=== PATIENT | female | born 1995 | race Two or more races ===

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

== ENCOUNTER 2017-04-10 12:44 | Emergency (ER) | payer BC ==
[~2017-04-10] VITALS: Ht 160 cm; Wt 115.0 kg
[~2017-04-10 12:44] MED LIST: AMOX1TAB10 PO; GUAI-637 PO
[2017-04-10 12:50] VITALS: Ht 160 cm; Wt 115.0 kg
--- NOTE | 2017-04-10 13:36 | RADRPT ---
PROCEDURE: XR Chest. CLINICAL INDICATION: chest pain TECHNIQUE: Single frontal view of the chest was obtained COMPARISON: None FINDINGS: The heart and mediastinum are within normal limits. There is a right lower lobe infiltrate. There is no pleural effusion or pneumothorax. RPTAT: AA IMPRESSION: Mild right lower lobe infiltrate. .Kendall Brown MD, MD Date Time Electronically viewed and signed by .Kendall Brown MD, on 04/10/2017 13:35 .S/
[2017-04-10] MEDS ORDERED: LEVOFLOXACIN 750 MG TABLET PO STA (13:51)
[2017-04-10 14:05] LABS: ADD UMIC YES; UR ASCORBIC ACID NEGATIVE (NEGATIVE); UR BACTERIA FEW /HPF (NONE SEEN); UR BILIRUBIN (Dip) 1+ mg/dL (NEGATIVE); UR BLOOD (Dip) NEGATIVE (NEGATIVE); UR CLARITY CLOUDY (CLEAR); UR COLOR AMBER (YELLOW); UR GLUCOSE (Dip) NEGATIVE (NEGATIVE); UR KETONES (Dip) TRACE mg/dL (NEGATIVE); UR LEUKOCYTE ESTERASE (Dip) 2+ Leu/ul (NEGATIVE); UR MUCUS MANY /HPF (NONE SEEN); UR NITRITE (Dip) NEGATIVE (NEGATIVE); UR RBC 6 /HPF (0-5); UR SPECIFIC GRAVITY (Dip) 1.032 (1.003-1.030); UR SQUAMOUS EPITHELIAL CELL MANY /HPF (FEW); UR TOTAL PROTEIN (Dip) 2+ mg/dl (NEGATIVE); UR UROBILINOGEN (Dip) NEGATIVE (NEGATIVE)
[2017-04-10 14:06] LABS: BASOPHILS % 0.2 % (0.0-2.0); EOSINOPHILS # 0.1 10^3/ul (0.0-0.5); EOSINOPHILS % 1.3 % (0.0-7.0); HEMATOCRIT 43.6 % (37.0-47.0); HEMOGLOBIN 14.6 g/dl (12.0-16.0); LYMPHOCYTES # 3.2 10^3/ul (0.8-2.9); LYMPHOCYTES % 31.1 % (18.0-55.0); MEAN CORPUSCULAR HGB CONC 33.5 g/dl (32.0-37.0); MEAN CORPUSCULAR VOLUME 86.5 fl (72.0-104.0); MEAN PLATELET VOLUME 10.3 fl (7.4-10.4); MONOCYTE # 0.5 10^3/ul (0.3-0.9); MONOCYTES % 5.2 % (0.0-13.0); NEUTROPHIL # 6.4 10^3/ul (1.6-7.5); NEUTROPHILS % 61.3 % (30.0-74.0); PLATELET COUNT 357 10^3/UL (140-415); RED BLOOD COUNT 5.04 10^6/ul (4.20-5.40); RED CELL DISTRIBUTION WIDTH 12.9 % (11.5-14.5); WHITE BLOOD COUNT 10.4 10^3/ul (4.8-10.8)
[2017-04-10] MEDS ORDERED: PHEN-538 PO (14:12)
[2017-04-10] MEDS ORDERED: LEVO750T25 PO (14:12)
[2017-04-10 14:18] VITALS: BP 174/95; PULSE 75; RESP 18; TEMP 98.9
[2017-04-10 14:38] LABS: ALANINE AMINOTRANSFERASE 149 IU/L (13-69); ALBUMIN 4.9 g/dl (3.3-4.9); ALBUMIN/GLOBULIN RATIO 1.44; ALKALINE PHOSPHATASE 79 IU/L (42-121); ANION GAP 23 (8-16); ASPARTATE AMINO TRANSFERASE 79 IU/L (15-46); BILIRUBIN,INDIRECT 0.4 mg/dl (0-1.1); BILIRUBIN,TOTAL 0.4 mg/dl (0.2-1.3); BLOOD UREA NITROGEN 8 mg/dl (7-20); CALCIUM 9.9 mg/dl (8.4-10.2); CARBON DIOXIDE 28 mmol/L (21-31); CHLORIDE 98 mmol/L (97-110); CREATININE 0.65 mg/dl (0.44-1.00); GLUCOSE 104 mg/dl (70-220); POTASSIUM 4.1 mmol/L (3.5-5.1); SODIUM 145 mmol/L (135-144); TOTAL PROTEIN 8.3 g/dl (6.1-8.1)
[2017-04-10 15:04] LABS: TROPONIN-I < 0.012 ng/ml (0.00-0.12)
--- NOTE | 2017-04-10 15:15 | ERD ---
ER Documentation Chief Complaint Date/Time DATE: 04/10/17 TIME: 15:02 Chief Complaint abdominal pain, chest pain, back pain and arm pain x 4 days HPI This is a 22-year-old female with a history of diabetes type 2, hypertension presenting to the emergency department complaining of chest pain, back pain, abdominal pain for the past 4 days. Patient states that her abdominal pain is constant rating it 5 out of 10. She admits to having a few episodes of nonbilious, nonbloody vomiting with diarrhea yesterday. Patient states that her chest pain is 6 out of 10 located in the left side of her chest, non- radiating and describes as sharp. She denies any shortness of breath. She denies any drug or alcohol use. Patient has not taken any medications for this. Denies any fevers. Denies dysuria ROS All systems reviewed and are negative except as per history of present illness. Medications Home Meds Active Scripts Phenazopyridine Hcl* (Pyridium*) 200 Mg Tab, 200 MG PO TID Y for URINARY PAIN, # 10 TAB Prov:ROBBI YANEZ PA-C 04/10/17 Levofloxacin* (Levaquin*) 750 Mg Tablet, 750 MG PO DAILY for 4 Days, TAB Prov:ROBBI YANEZ PA-C 04/10/17 Guaifenesin* (Robitussin*) 100 Mg/5 Ml Syrup, 100 MG PO Q4H Y for COUGH for 7 Days, ML Prov:PASILABANLEOAR F 10/11/16 Amoxicillin/Potassium Clav (Amox-Clav 875-125 mg Tablet) 875-125 mg Tab, 1 TAB PO BID for 7 Days, #14 TAB Prov:NATEILAJORGELEOAR F 10/11/16 Allergies Allergies: Coded Allergies: No Known Allergy (Verified , 09/15/14) PMhx/Soc History of Surgery: No Anesthesia Reaction: No Hx Neurological Disorder: No Hx Respiratory Disorders: No Hx Cardiac Disorders: Yes (HTN, HYPERLIPIDEMIA ) Hx Psychiatric Problems: No Hx Miscellaneous Medical Probl: Yes (DM) Hx Alcohol Use: No Hx Substance Use: No Hx Tobacco Use: No Smoking Status: Never smoker Physical Exam Vitals Vital Signs Date Time Temp Pulse Resp B/P Pulse Ox O2 Delivery O2 Flow Rate FiO2 04/10/17 14:18 98.9 75 18 174/95 98 Room Air 04/10/17 12:50 99.4 96 18 164/94 98 Physical Exam GENERAL: well-developed/well-nourished, in no apparent distress, non-toxic appearing HENT: NC/AT, moist mucous membranes EYES: Conjunctiva normal NECK: Supple, no lymphadenopathy PULM: No rales, rhonchi heard CV: Normal S1S2, RRR, good capillary refill GI: Soft, non-distended, tender to palpation in the suprapubic region Normal bowel sounds, no masses or organomegaly felt on exam No gross peritonitis, no bruits Negative Rovsing, negative Gaspar, negative McBurney's point, Negative CVAT BACK: No masses EXT: No clubbing, cyanosis, or edema NEURO: Alert and Orientated SKIN: Intact, normal turgor PSYCH: Normal mood and mentation Result Diagram: 04/10/17 1357 04/10/17 1357 Results 24 hrs Laboratory Tests Test 04/10/17 13:42 04/10/17 13:56 04/10/17 13:57 Urine Color DESHAWN Urine Clarity CLOUDY Urine pH 5.0 Urine Specific [place] 1.032 Urine Ketones TRACEmg/dL Urine Nitrite NEGATIVEmg/dL Urine Bilirubin 1+mg/dL Urine Urobilinogen NEGATIVEmg/dL Urine Leukocyte Esterase 2+Sigifredo/ul Urine Microscopic RBC 6/HPF Urine Microscopic WBC 22/HPF Urine Squamous Epithelial Cells MANY/HPF Urine Bacteria FEW/HPF Urine Mucus MANY/HPF Urine Hemoglobin NEGATIVEmg/dL Urine Glucose NEGATIVEmg/dL Urine Total Protein 2+mg/dl Bedside Glucose 99mg/dL White Blood Count 10.410^3/ul Red Blood Count 5.0410^6/ul Hemoglobin 14.6g/dl Hematocrit 43.6% Mean Corpuscular Volume 86.5fl Mean Corpuscular Hemoglobin 29.0pg Mean Corpuscular Hemoglobin Concent 33.5g/dl Red Cell Distribution Width 12.9% Platelet Count 37101^3/UL Mean Platelet Volume 10.3fl Neutrophils % 61.3% Lymphocytes % 31.1% Monocytes % 5.2% Eosinophils % 1.3% Basophils % 0.2% Nucleated Red Blood Cells % 0.0/100WBC Neutrophils # 6.410^3/ul Lymphocytes # 3.210^3/ul Monocytes # 0.510^3/ul Eosinophils # 0.110^3/ul Basophils # 0.010^3/ul Nucleated Red Blood Cells # 0.010^3/ul Sodium Level 145mmol/L Potassium Level 4.1mmol/L Chloride Level 98mmol/L Carbon Dioxide Level 28mmol/L Anion Gap 23 Blood Urea Nitrogen 8mg/dl Creatinine 0.65mg/dl Glucose Level 104mg/dl Calcium Level 9.9mg/dl Total Bilirubin 0.4mg/dl Direct Bilirubin 0.00mg/dl Indirect Bilirubin 0.4mg/dl Aspartate Amino Transf (AST/SGOT) 79IU/L Alanine Aminotransferase (ALT/SGPT) 149IU/L Alkaline Phosphatase 79IU/L Troponin I < 0.012ng/ml Total Protein 8.3g/dl Albumin 4.9g/dl Globulin 3.40g/dl Albumin/Globulin Ratio 1.44 Lipase 44U/L Current Medications Medications (Trade) Dose Ordered Sig/Rachel Route PRN Reason Start Time Stop Time Status Last Admin Dose Admin Levofloxacin (Levaquin) 750 mg ONCE STAT PO 04/10/17 13:51 04/10/17 13:52 DC 04/10/17 14:14 Procedures/MDM This is a 22-year-old female with a history of diabetes type 2, hypertension presenting to the emergency department complaining of chest pain, back pain, abdominal pain for the past 4 days. Patient was found to have a left lower lobe pneumonia and a urinary tract infection. There was no evidence of sepsis, pyelonephritis or nephrolithiasis. Patient is afebrile, she appears well and nontoxic appearing. IV access established, Lab work was drawn. CBC did not show any evidence of leukocytosis or anemia. CMP did not show any evidence of renal, liver, or electrolyte abnormalities. Lipase was normal. UA showed evidence of a urinary tract infection and hemoglobin. Chest x-ray was done, radiologist stated left lower lobe infiltrate. No evidence of pneumothorax, pleural effusion. In the ED patient was given Levaquin to cover the pneumonia and the urinary tract infection. Patient is stable to be discharged home to follow-up with primary care physician. She understands and agrees with this plan and understands return the ER for any worsening symptoms or not improving as expected. EKG: read and signed off by myself and Dr. Long Rate/Rhythm: [Normal Sinus Rhythm] QRS, ST, T-waves: [No changes consistent w/ acute ischemia] Impression: [No evidence of ischemia or arrhythmia] Departure Diagnosis: Primary Impression: Pneumonia Additional Impression: UTI (urinary tract infection) Condition: Stable Patient Instructions: Understanding Urinary Tract Infections (UTIs), Pneumonia (Adult) Additional Instructions: FOLLOW UP WITH YOUR PRIMARY CARE PHYSICIAN TOMORROW.Return to this facility if you are not improving as expected. Take all medicines as directed. Return to this facility if you are not improving as expected. ROBBI YANEZ PA-C Apr 10, 2017 15:12
== END 2017-04-10 14:27 | disposition home or self-care (01) ==
LOC: FTE 12:44
DX: J18.9 Pneumonia, unspecified organism (principal); N39.0 Urinary tract infection, site not specified; E11.9 Type 2 diabetes mellitus without complications; I10 Essential (primary) hypertension
CPT/HCPCS: 71010; 80053; 81001; 82962; 83690; 84484; 85025; 93005; Z7610; 36415

== ENCOUNTER 2019-06-03 15:15 | Emergency (ER) | payer BC ==
[~2019-06-03] VITALS: Wt 113.8 kg
[~2019-06-03 15:15] MED LIST changes: +ACET-141 PO; +LEVO750T25 PO; +PHEN-538 PO; +POLY10DR BOTH EYES
[2019-06-03 15:27] VITALS: BP 181/103; PULSE 76; RESP 20
== END 2019-06-03 15:45 | disposition home or self-care (01) ==
LOC: E/R 15:15
DX: H10.9 Unspecified conjunctivitis (principal); I10 Essential (primary) hypertension; E11.9 Type 2 diabetes mellitus without complications
CPT/HCPCS: 99283